=== PATIENT | male | born 1980 | race Caucasian/White ===

== ENCOUNTER → 2020-07-07 | Outpatient (CLI) | payer BC ==
[2020-07-07 13:47] LABS: Basophils # (A) 0.1 k/uL (0-0.2); Basophils % (A) 1 %; Eosinophils # (A) 0.2 k/uL (0-0.7); Eosinophils % (A) 3 %; HCT 43.4 % (39.0-53.0); Lymphocytes # (A) 1.4 k/uL (1.0-4.8); Lymphocytes % (A) 19 %; MCH 31.2 pg (25.0-35.0); MCHC 34.5 g/dL (31.0-37.0); MCV 90.5 fL (80.0-100.0); Mean Platelet Volume 6.6; Monocytes # (A) 0.3 k/uL (0-1.0); Monocytes % (A) 4 %; Neutrophils # (A) 5.4 k/uL (1.3-7.7); Neutrophils % (A) 72 %; Platelet Count 303 k/uL (150-450); RDW 12.1 % (11.5-15.5); WBC 7.6 k/uL (3.8-10.6)
[2020-07-07 13:52] LABS: African American GFR (CKD) >90 (>60 ml/min/1.73 sqM); Anion Gap 7 mmol/L; Blood Urea Nitrogen 18 mg/dL (9-20); Calcium 9.7 mg/dL (8.4-10.2); Carbon Dioxide 30 mmol/L (22-30); Chloride 104 mmol/L (98-107); Glucose 92 mg/dL (74-99); Non-African American GFR(CKD) >90 (>60 ml/min/1.73 sqM); Potassium 4.5 mmol/L (3.5-5.1); Sodium 141 mmol/L (137-145)
== END | disposition home or self-care (01) ==
LOC: LABPAT 11:57
PROVIDERS: ATTEND Urology
DX: Z01.818 Encounter for other preprocedural examination (principal); N50.89 Other specified disorders of the male genital organs
CPT/HCPCS: 80048; 85025

== ENCOUNTER → 2020-07-07 | Outpatient (CLI) | payer BC ==
--- NOTE | 2020-07-07 11:56 | US ---
EXAMINATION TYPE: US scrotum with doppler. Grayscale and color Doppler Duplex imaging performed of t he scrotum. DATE OF EXAM: 07/07/2020 COMPARISON: NONE CLINICAL HISTORY: C62.90 RT TESTES NEOPLASM. rt mass EXAM MEASUREMENTS: TESTICLES: Right Testicle: 5.4 x 2.6 x 3.5 cm Mass seen measuring 1.5 x 1.4 x 1.9 cm with color flow. Left Testicle: 4.5 x 2.0 x 3.1 cm EPIDIDYMIS HEAD: Right Epididymis: 1.2 x .4 x .8 cm Left Epididymis: Not well visualized. Doppler performed to assess for testicular vascularity; good bilateral color flow and waveforms are s een. There is no evidence of testicular torsion. Presence of hydroceles: No Presence of varicoceles: No IMPRESSION: 1. Right testicular mass with solid and cystic components. Neoplasm is not excluded. Clinical correla tion advised.
== END | disposition home or self-care (01) ==
LOC: RADUSWWP 11:09
PROVIDERS: ATTEND Urology
DX: C62.90 Malignant neoplasm of unspecified testis, unspecified whether descended or undescended (principal)
CPT/HCPCS: 76870; 82105; 83615; 93975

== ENCOUNTER 2020-07-16 06:15 | Day surgery (SDC) | payer BC ==
[2020-07-09 10:31] VITALS: BMI 24.3
--- NOTE | 2020-07-15 13:07 | P.HPIHPCON ---
History of Present Illness H&P Date: 07/16/20 Chief Complaint: right testicular mass Mr Harvey is a 40 yo male with hx of 1.9 cm right testicular mass. His tumor markers are negative. Scrotal U/S showed a hypervascular testicular mass concerning for malignancy. I discussed with him the finding is concerning for testicular cancer. Discussed with him a biopsy is not advisable given the risk of seeding. Discussed with him the next step is to proceed with surgical excision. Discussed with him the option of radical orchiectomy vs partial orchiectomy. Discussed with him there is potential that this could be benign and if tumor is peripheral we can consider doing partial excision. He declined that option and agreed to proceed with radical orchiectomy. Discussed with him risk of bleeding, infection and discussed given his cardiovascular he is at increased risk of complications. He also wanted to proceed with testicular implant at the same setting. He understood all risks and agreed to proceed with right sided radical orchiectomy with testicular implant. Consent for Procedure: I have explained the operation/procedure to the patient, including the risks, benefits, side effects, alternative therapies (including not receiving the proposed treatment or service), the likelihood of the patient achieving his/her goals, and potential recuperation problems for the procedure/sedation/analgesia, as well as any blood products, if indicated. I also explained to the patient the risks, benefits and side effects of the alternatives, as well as the risks related to not receiving the proposed procedure, care, treatment, or services. - Constitutional Constitutional: Denies chills, Denies fever - Genitourinary (Female) Genitourinary: Denies dysuria, Denies hematuria Past Medical History Past Medical History: Hypertension Additional Past Medical History / Comment(s): AORTIC ROOT -MARFAN SYNDROME , MITRAL VALVE PROLAPSE History of Any Multi-Drug Resistant Organisms: None Reported Past Surgical History: Orthopedic Surgery, Tonsillectomy Additional Past Surgical History / Comment(s): AORTIC ROOT SURGERY- OPEN HEART , HERNIA HYDROCELE , LEFT ARM SURGERY, BILATERAL LENS REPLACEMENT Past Anesthesia/Blood Transfusion Reactions: Postoperative Nausea & Vomiting (PONV) Smoking Status: Never smoker - Past Family History Mother Family Medical History: Cancer Additional Family Medical History / Comment(s): BREAST CANCER Medications and Allergies Home Medications Medication Instructions Recorded Confirmed Type Aspirin EC [Ecotrin] 325 mg PO DAILY 07/09/20 07/09/20 History Metoprolol Tartrate [Lopressor] 50 mg PO DAILY 07/09/20 07/09/20 History amLODIPine [Norvasc] 10 mg PO DAILY 07/09/20 07/09/20 History Allergies Allergy/AdvReac Type Severity Reaction Status Date / Time No Known Allergies Allergy Verified 07/09/20 09:51 Surgical - Exam - General well developed, well nourished, no distress, no pain - Eyes PERRL, normal ocular movement - ENT normal nares, normal mucosa - Respiratory normal expansion, normal respiratory effort - Psychiatric oriented to time, oriented to person, oriented to place Assessment and Plan Assessment: 40 yo male with hx of right testicular mass -OR for right sided radical orchiectomy and testicular implant
[~2020-07-16 06:15] MED LIST: DEXAMETHASONE SOD PHOSPHATE 4 MG/ML 1 ML VIAL IV ONE; ONDANSETRON 4 MG/2 ML VIAL IVP ONE; VANCOMYCIN 1,500 MG in SODIUM CHLORIDE 0.9% 250 ML IVPB PRN
[2020-07-16] MEDS ORDERED: SCOPOLAMINE 1.5MG/72HR PATCH TRANSDERM ONE (06:59)
[2020-07-16] MEDS ORDERED: HYDROmorphone 0.5 MG/0.5 ML SYRINGE IVP PRN (07:00)
[2020-07-16] MEDS: LACTATED RINGERS 1,000 ML IV SCH (07:01)
[2020-07-16] MEDS ORDERED: PROPOFOL 10 MG/ML 20 ML VIAL IV ONE (07:30)
[2020-07-16] MEDS ORDERED: fentaNYL (PF) 50 MCG/ML 2 ML AMP ONE (07:30)
[2020-07-16] MEDS ORDERED: HYDROmorphone (PF) 1 MG/ML ONE (07:30)
[2020-07-16] MEDS ORDERED: LIDOCAINE 1% INJ 10MG/ML (20 ML MDV) ONE (07:30)
[2020-07-16] MEDS ORDERED: KETOROLAC 15 MG/ML 1 ML VIAL ONE (07:30)
[2020-07-16] MEDS ORDERED: MIDAZOLAM 2 MG/2 ML VIAL ONE (07:30)
[2020-07-16] MEDS ORDERED: BUPIVACAINE (PF) 0.25% 30 ML VIAL SQ ONE ×3 (07:31→08:49)
[2020-07-16] MEDS ORDERED: GENTAMICIN PER PHARMACY MISCELLANE PRN (07:32)
[2020-07-16] MEDS ORDERED: VANCOMYCIN IV PER PHARMACY 1 EACH MISC MISCELLANE PRN (07:35)
[2020-07-16] MEDS: GENTAMICIN 120 MG in SODIUM CHLORIDE 0.9% 100 ML IVPB PRN ×2 (07:59→08:16)
[2020-07-16] MEDS ORDERED: GENTAMICIN 80 MG in SODIUM CHLORIDE 0.9% 200 ML IRRIGATION ONE (08:27)
[2020-07-16] MEDS ORDERED: LACTATED RINGERS 1,000 ML IV ONE (08:46)
--- NOTE | 2020-07-16 08:59 | P.OP ---
Date of Procedure: 07/16/20 Preoperative Diagnosis: Right testicular mass Postoperative Diagnosis: Same Procedure(s) Performed: Right sided radical orchiectomy and implant of testicular prosthesis Implants: Coloplast testicular prostheses filled with 17 mL of saline Anesthesia: LINA Surgeon: Raad Ybarra Estimated Blood Loss (ml): 10 Pathology: other (Right testicle and cord) Condition: stable Disposition: PACU Indications for Procedure: Mr Harvey is a 40 yo male with hx of 1.9 cm right testicular mass. His tumor markers are negative. Scrotal U/S showed a hypervascular testicular mass concerning for malignancy. I discussed with him the finding is concerning for testicular cancer. Discussed with him a biopsy is not advisable given the risk of seeding. Discussed with him the next step is to proceed with surgical excision. Discussed with him the option of radical orchiectomy vs partial orchiectomy. Discussed with him there is potential that this could be benign and if tumor is peripheral we can consider doing partial excision. He declined that option and agreed to proceed with radical orchiectomy. Discussed with him risk of bleeding, infection and discussed given his cardiovascular he is at increased risk of complications. He also wanted to proceed with testicular implant at the same setting. He understood all risks and agreed to proceed with right sided radical orchiectomy with testicular implant. Operative Findings: right testicular mass Description of Procedure: patient was brought to the operating room, general anesthesia was induced. He was prepped and draped so fashion a placed in supine position. The testicle was palpated and there was a hard testicular mass on the right side. An incision was made along the inguinal ring using the scalpel. The subcutaneous tissue was dissected down, until the cord was identified. Caution was taken to avoid injuring the ilioinguinal nerve. Once the cord was identified, it was dissected off. A Scott was placed around the cord. Next the testicle was pushed through the scrotum and all the surrounding tissue was excised off of the testicle and the testicle was freely freed from the scrotum. At this point the cord was ligated in 2 pockets using 2-0 silk ties and 2-0 silk sutures. The cord was ligated and the testicle and the cord was sent to pathology. Hemostasis was achieved using electrocautery. At this time attention was carried to the testicle implant, prior to placement of scrotum was irrigated with antibiotic irrigation. the testicle implant was filled with 17 mL of saline. At this time the scrotum was inverted and a 2-0 silk stitch was placed in the inferior portion of the scrotum. the implant was secured to the scrotum by using the 2-0 silk stitch. The implant was in adequate position within the scrotum. The fascial incision was closed with 2-0 Vicryl, and the subcutaneous tissue was closed with 3-0 Vicryl. The skin was closed with 4-0 Monocryl in running fashion. 10 mL of local was infiltrated, and skin glue was applied to the incision. a scrotal support was applied to the scrotum. The patient tolerated procedure well was taken to PACU in stable condition
[2020-07-16] MEDS ORDERED: ONDANSETRON 4 MG/2 ML VIAL IVP PRN (09:09)
[2020-07-16 09:13] VITALS: RESP 16
[2020-07-16] MEDS: METOPROLOL TARTRATE 50 MG TAB PO SCH (10:55)
[2020-07-16] MEDS: HYDROcodone/APAP 5-325MG 1 EACH TAB PO PRN ×3 (10:59→21:09)
[2020-07-16] MEDS ORDERED: amLODIPine 10 MG TAB PO SCH ×2 (11:00→21:00)
[2020-07-16] MEDS: D5-0.45% NACL WITH KCL 20MEQ/L 1,000 ML IV SCH (11:21)
[2020-07-16] MEDS: VANCOMYCIN 1,500 MG in SODIUM CHLORIDE 0.9% 250 ML IVPB SCH ×2 (14:03→23:19)
[2020-07-16] MEDS ORDERED: GENTAMICIN 600 MG in SODIUM CHLORIDE 0.9% 100 ML IVPB ONE (16:00)
[2020-07-16] MEDS: HEPARIN SODIUM,PORCINE 5,000 UNIT/ML 1 ML VIAL SQ SCH ×2 (16:15→23:19)
[2020-07-17] MEDS: LACTATED RINGERS 1,000 ML IV SCH (06:41)
[2020-07-17] MEDS: VANCOMYCIN 1,500 MG in SODIUM CHLORIDE 0.9% 250 ML IVPB SCH (06:41)
[2020-07-17] MEDS: HYDROcodone/APAP 5-325MG 1 EACH TAB PO PRN ×2 (06:41→11:50)
[2020-07-17] MEDS: D5-0.45% NACL WITH KCL 20MEQ/L 1,000 ML IV SCH (06:42)
[2020-07-17 08:34] VITALS: BP 105/57; PULSE 62; TEMP 98.1
[2020-07-17] MEDS: HEPARIN SODIUM,PORCINE 5,000 UNIT/ML 1 ML VIAL SQ SCH (09:45)
[2020-07-17] MEDS: METOPROLOL TARTRATE 50 MG TAB PO SCH (09:45)
--- NOTE | 2020-07-17 14:26 | P.DS ---
Providers Attending physician: Raad Ybarra MD Primary care physician: [facility] Course: This is 40-year-old male with history of right testicular mass. He underwent a radical orchiectomy and a placement of testicular prostheses on July 16. Please see op note dated July 16 2020 for full Surgery detail. Given patient history of thoracic graft he was admitted postoperatively for IV antibiotics. He was started on IV vancomycin and gentamicin for 24 hours. Patient was discharged home on postoperative day #1 with PO antibiotics. At time of discharge he was tolerating diet, pain was controlled, and his exam was benign Patient Condition at Discharge: Fair Plan - Discharge Summary Discharge Rx Participant: No New Discharge Prescriptions: New Sulfamethox-Tmp 800-160Mg [Bactrim DS 800-160 mg] 1 tab PO Q12HR #14 tab Hydrocodone/Acetaminophen [[place] 5-325] 1 each PO Q4HR PRN #10 tab PRN Reason: Pain No Action amLODIPine [Norvasc] 10 mg PO DAILY Aspirin EC [Ecotrin] 325 mg PO DAILY Metoprolol Tartrate [Lopressor] 50 mg PO DAILY Discharge Medication List Aspirin EC [Ecotrin] 325 mg PO DAILY 07/09/20 [History] Metoprolol Tartrate [Lopressor] 50 mg PO DAILY 07/09/20 [History] amLODIPine [Norvasc] 10 mg PO DAILY 07/09/20 [History] Hydrocodone/Acetaminophen [[place] 5-325] 1 each PO Q4HR PRN #10 tab 07/17/20 [Rx] Sulfamethox-Tmp 800-160Mg [Bactrim DS 800-160 mg] 1 tab PO Q12HR #14 tab 07/17/20 [Rx] Follow up Appointment(s)/Referral(s): Raad Ybarra MD [STAFF PHYSICIAN] - As Needed ( PREVIOUSLY SCHEDULED) Patient Instructions/Handouts: Orchiectomy (DC), Surgical Site Infections (DC) Activity/Diet/Wound Care/Special Instructions: No heavy lifting or straining for 4 weeks You may resume your aspirin on tuesday Discharge Disposition: HOME SELF-CARE
== END 2020-07-17 12:15 | disposition home or self-care (01) ==
LOC: OR 06:15 → 1SOBS 09:54 → OR 07-17 12:15
PROVIDERS: ATTEND Urology
DX: D18.09 Hemangioma of other sites (principal); I10 Essential (primary) hypertension; Q87.418 Marfan syndrome with other cardiovascular manifestations; Z98.890 Other specified postprocedural states; Z90.89 Acquired absence of other organs; Z96.1 Presence of intraocular lens; Z91.89 Other specified personal risk factors, not elsewhere classified; Z80.3 Family history of malignant neoplasm of breast; Z79.82 Long term (current) use of aspirin; Z79.899 Other long term (current) drug therapy
CPT/HCPCS: 88309; 54530; J2250; J3370 ×2; J1580 ×2; J1644 ×2; J1100; J2405; J2001; J3010; J1170; J1885; J2704